=== PATIENT | female | born 2000 | race American Indian/Alaskan Native ===

== ENCOUNTER 2021-04-29 12:30 | Outpatient (CLI) | payer OTHER ==
[2021-04-29 13:55] VITALS: BP 107/59
[2021-04-29 14:54] LABS: Bacteria,Urine 2+ /HPF (Negative); Bilirubin,Urine NEG (Negative); Blood,Urine NEG (Negative); Color,Urine Yellow (Yellow); Mucus,Urine FEW /HPF; Protein,Urine <15 mg/dL mg/dL (Negative); Urobilinogen,Urine < 2.0 mg/dL (<2.0)
[2021-04-29] MEDS ORDERED: LACTATED RINGERS 500 ML IV ONE (15:07)
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
== END 2021-04-29 18:30 | disposition home or self-care (01) ==
LOC: TRG 12:30 → APU 12:32 → TRG 18:30
PROVIDERS: ATTEND Obstetrics & Gynecology
DX: Z34.93 Encounter for supervision of normal pregnancy, unspecified, third trimester (principal); Z3A.29 29 weeks gestation of pregnancy
CPT/HCPCS: 59025; 76815; 76819; 81001